=== PATIENT | female | born 1970 | race Caucasian/White ===

== ENCOUNTER 2018-01-07 10:59 | Emergency (ER) | payer BC ==
[~2018-01-07] VITALS: Ht 162.6 cm; Wt 55.8 kg
[2018-01-07 11:01] VITALS: BP 134/60; PULSE 88; RESP 16; TEMP 97.8; O2SAT 98
[2018-01-07] MEDS ORDERED: METF500T PO (11:24)
[2018-01-07] MEDS ORDERED: ZOLO100T PO (11:24)
[2018-01-07] MEDS ORDERED: ASPI-516 CHEW (11:24)
[2018-01-07] MEDS ORDERED: CLON1 PO (11:24)
[2018-01-07] MEDS ORDERED: BUSP30TA PO (11:24)
[2018-01-07] MEDS ORDERED: TOPI25 PO (11:24)
--- NOTE | 2018-01-07 11:25 | PD ---
HPI Chief Complaint: [employer] Problem/Complaint Time Seen by Provider: 11:23 Travel History International Travel<30 days: No Contact w/Intl Traveler<30days: No Traveled to known affect area: No History of Present Illness HPI 47-year-old female came to the emergency room with history of dark-colored urine since this morning. Patient is concerned about her kidneys. There was a UA ordered from triage. Patient says she cannot give a urine sample and wants us to catheterize her. She is concerned that she has history of diabetes and is on Glucophage 500 mg twice daily. She has lost substantial amount of weight in past 12-14 months intentionally. Patient also says that she was admitted 3 days prior to today in [facility] for small bowel obstruction. She had an NG tube and large quantity of gastric juice was suctioned out. Within 24 hours she started having large volume of liquid stool 4 times. Last episode of such diarrhea was January 05. Patient says today when she noticed the dark color urine she got concerned about her kidney and came to the emergency room. She drove herself but on route became incontinent and had formed stool in her underwear. Vital signs are stable. Patient denies any fever or chills. During this entire history taking it was very difficult to get the patient focused and gave pertinent history. She had a tendency to backtrack 12-14 months ago. She was very disgruntled by her experience at the [facility] and said she did not want to talk about it. Patient is from [place]. She has made me aware that her doctors are in [place]. She is also concerned about edema of her body. Patient denies of any dysuria or hematuria. [facility] Past Medical History Narrative Medical List of her past medical, surgical, social and family history is reviewed from the nursing note. Anxiety: Yes Depression: Yes Diabetes: Yes Patient Takes Glucophage: Yes ?: Not Past Surgical History Other Surgery: Yes (r ovary and fallopian tube removed) Social History Alcohol Use: No Tobacco Use: Yes Substance Use: No Allergies-Medications (Allergen,Severity, Reaction): Coded Allergies: ciprofloxacin (Verified Allergy, Severe, 01/07/18) TONGUE SWELLING No Known Allergies (Verified Allergy, Unknown, 01/07/18) Comments No known drug allergies. Reported Meds & Prescriptions Reported Meds & Active Scripts Active Macrobid (Nitrofurantoin Monoh/Nitrofur Macro) 100 Mg Cap 100 Mg PO BID 10 Days Reported Aspirin 81 Mg Chew 81 Mg CHEW DAILY Topamax (Topiramate) 25 Mg Tab 30 Mg PO BID Klonopin (Clonazepam) 1 Mg Tab 1 Mg PO BID Buspirone (Buspirone HCl) 30 Mg Tab 30 Mg PO BID Zoloft (Sertraline HCl) 100 Mg Tab 200 Mg PO DAILY Metformin (Metformin HCl) 500 Mg Tab 500 Mg PO DAILY With a meal Narrative Medication List of her home medications reviewed from the nursing note. Review of Systems Except as stated in HPI: all other systems reviewed are Neg Physical Exam Narrative GENERAL: Awake, alert, no obvious distress SKIN: Focused skin assessment warm/dry. HEAD: Atraumatic. Normocephalic. EYES: Pupils equal and round. No scleral icterus. No injection or drainage. ENT: No nasal bleeding or discharge. Mucous membranes pink and moist. NECK: Trachea midline. No JVD. CARDIOVASCULAR: Regular rate and rhythm. No murmur appreciated. RESPIRATORY: No accessory muscle use. Clear to auscultation. Breath sounds equal bilaterally. GASTROINTESTINAL: Abdomen soft, non-tender, nondistended. Hepatic and splenic margins not palpable. MUSCULOSKELETAL: No obvious deformities. No clubbing. No cyanosis. No edema. NEUROLOGICAL: Awake and alert. No obvious cranial nerve deficits. Motor grossly within normal limits. Normal speech. PSYCHIATRIC: Appropriate mood and affect; insight and judgment normal. Data Data Last Documented VS Vital Signs Date Time Temp Pulse Resp B/P (MAP) Pulse Ox O2 Delivery O2 Flow Rate FiO2 01/07/18 14:10 01/07/18 13:50 78 16 100 Room Air 01/07/18 11:01 97.8 Orders Orders Urinalysis - C+S If Indicated (01/07/18 11:02) Ed Urine Pregnancytest Poc (01/07/18 11:02) Complete Blood Count With Diff (01/07/18 11:46) Comprehensive Metabolic Panel (01/07/18 11:46) Sodium Chlor 0.9% 1000 Ml Inj (Ns 1000 M (01/07/18 12:00) Urine Culture (01/07/18 11:54) Ceftriaxone Inj (Rocephin Inj) (01/07/18 12:45) Blood Culture (01/07/18 12:44) Ed Discharge Order (01/07/18 12:50) Labs Laboratory Tests Test 01/07/18 11:54 White Blood Count 16.3 TH/MM3 Red Blood Count 4.45 MIL/MM3 Hemoglobin 12.7 GM/DL Hematocrit 38.0 % Mean Corpuscular Volume 85.3 FL Mean Corpuscular Hemoglobin 28.6 PG Mean Corpuscular Hemoglobin Concent 33.5 % Red Cell Distribution Width 13.7 % Platelet Count 303 TH/MM3 Mean Platelet Volume 8.9 FL Neutrophils (%) (Auto) 69.1 % Lymphocytes (%) (Auto) 23.0 % Monocytes (%) (Auto) 5.7 % Eosinophils (%) (Auto) 0.7 % Basophils (%) (Auto) 1.5 % Neutrophils # (Auto) 11.4 TH/MM3 Lymphocytes # (Auto) 3.7 TH/MM3 Monocytes # (Auto) 0.9 TH/MM3 Eosinophils # (Auto) 0.1 TH/MM3 Basophils # (Auto) 0.2 TH/MM3 CBC Comment AUTO DIFF Differential Comment AUTO DIFF CONFIRMED Urine Collection Type CLEAN CATCH Urine Color YELLOW Urine Turbidity SL CLOUDY Urine pH 6.0 Urine Specific [place] LESS/EQUAL 1.005 Urine Protein NEG mg/dL Urine Glucose (UA) NEG mg/dL Urine Ketones TRACE mg/dL Urine Occult Blood LARGE Urine Nitrite NEG Urine Bilirubin NEG Urine Urobilinogen 0.2 MG/DL Urine Leukocyte Esterase LARGE Urine RBC 100-200 /hpf Urine WBC 25-49 /hpf Urine Squamous Epithelial Cells 6-8 /hpf Urine Bacteria MOD /hpf Microscopic Urinalysis Comment CULTURE INDICATED Urine Collection Time 11:54 Blood Urea Nitrogen 8 MG/DL Creatinine 0.55 MG/DL Random Glucose 103 MG/DL Total Protein 8.0 GM/DL Albumin 4.0 GM/DL Calcium Level 9.0 MG/DL Alkaline Phosphatase 67 U/L Aspartate Amino Transf (AST/SGOT) 13 U/L Alanine Aminotransferase (ALT/SGPT) 18 U/L Total Bilirubin 0.5 MG/DL Sodium Level 139 MEQ/L Potassium Level 3.6 MEQ/L Chloride Level 109 MEQ/L Carbon Dioxide Level 21.4 MEQ/L Anion Gap 9 MEQ/L Estimat Glomerular Filtration Rate 118 ML/MIN [facility] Medical Decision Making Medical Screen Exam Complete: Yes Emergency Medical Condition: Yes Medical Record Reviewed: Yes Differential Diagnosis Dehydration, acute renal failure, electrolyte abnormality Narrative Course 11:59 AM I let the patient know that will give her IV fluid and once she is ready to urinate she can give us a urine sample. Patient became very upset at this and said that I do not understand that she is very dehydrated. She is really concerned that her kidneys have failed. I did make her aware that she had blood test done 2 days ago at [facility] and if there was any issues with her renal function they would have let her know prior to the discharge. However we will repeat the blood test here. At this point patient said that she got the feeling that I was not listening to her and she is in charge of her body. She would rather talk to her doctors from [place] and consult with them. Since I felt that the situation was escalating and getting nowhere and no matter what I told the patient she was fixated on the idea that I was not interested in her health condition I left the room and came out and inform the charge nurse about the situation. 12:48 PM blood test results are back and patient has leukocytosis with no left shift. Electrolyte and renal function are within normal limit. UA is suggestive of a UTI. I have ordered blood culture and IV Rocephin. Patient can be discharged home on p.o. Macrobid. There are RBCs in her urine which could be from her menstrual cycle currently. Procedures EKG Prior to Arrival: No Diagnosis Primary Impression: UTI (urinary tract infection) Qualified Codes: N39.0 - Urinary tract infection, site not specified; R31.9 - Hematuria, unspecified Referrals: [facility] Additional Instructions: Take the medication as per the prescription direction. Follow-up with the clinic whose name and number been provided to you. Return to the ER if condition worsens any other new concerns. Med/Other Pt SpecificInfo: Prescription(s) given Scripts Nitrofurantoin Monohydrate Macrocrystals (Macrobid) 100 Mg Cap 100 MG PO BID for Infection for 10 Days, #20 CAP 0 Refills Prov: Chris Lynn MD 01/07/18 Disposition: 01 DISCHARGE HOME Condition: Stable Chris Lynn MD January 07, 2018 11:24
[2018-01-07] MEDS ORDERED: SODIUM CHLOR 0.9% 1000 ML INJ 1,000 ML IV ONE (12:00)
[2018-01-07 12:07] LABS: AUTOMATED NEUTROPHIL # 11.4 TH/MM3 (1.8-7.7); BASOPHIL # 0.2 TH/MM3 (0-0.2); BASOPHIL % 1.5 % (0.0-2.0); EOSINOPHIL # 0.1 TH/MM3 (0-0.4); EOSINOPHIL % 0.7 % (0.0-4.0); HEMOGLOBIN 12.7 GM/DL (11.6-15.3); LYMPHOCYTE # 3.7 TH/MM3 (1.0-4.8); MEAN CELL VOLUME 85.3 FL (80.0-100.0); MEAN CORPUSCULAR HEMOGLOBIN 28.6 PG (27.0-34.0); MEAN CORPUSCULAR HGB CONC 33.5 % (32.0-36.0); MEAN PLATELET VOLUME 8.9 FL (7.0-11.0); MONO % 5.7 % (0.0-8.0); MONOCYTE # 0.9 TH/MM3 (0-0.9); NEUT % 69.1 % (16.0-70.0); PLATELET COUNT 303 TH/MM3 (150-450); RED BLOOD COUNT 4.45 MIL/MM3 (4.00-5.30); RED CELL DISTRIBUTION WIDTH 13.7 % (11.6-17.2); WHITE BLOOD COUNT 16.3 TH/MM3 (4.0-11.0)
[2018-01-07 12:08] LABS: BILIRUBIN, URINE NEG (NEG); BLOOD, URINE LARGE (NEG); GLUCOSE,URINE NEG (NEG); KETONE, URINE TRACE mg/dL (NEG); NITRITE,URINE NEG (NEG); URINE COLOR YELLOW (YELLW/STRAW); URINE LEUKOCYTE ESTERASE LARGE (NEG)
[2018-01-07 12:16] LABS: CHLORIDE 109 MEQ/L (98-107); SODIUM (NA) 139 MEQ/L (136-145)
[2018-01-07 12:22] LABS: BICARBONATE 21.4 MEQ/L (21.0-32.0); BLOOD UREA NITROGEN 8 MG/DL (7-18); GLUCOSE,RANDOM 103 MG/DL (74-106)
[2018-01-07 12:25] LABS: ALT (GPT) 18 U/L (10-53); AST (GOT) 13 U/L (15-37); CREATININE 0.55 MG/DL (0.50-1.00); GLOMERULAR FILTRATION RATE 118 ML/MIN (>89)
[2018-01-07 12:27] LABS: TOTAL BILIRUBIN ADULT 0.5 MG/DL (0.2-1.0)
[2018-01-07 12:28] LABS: ALKALINE PHOSPHATASE 67 U/L (45-117); RBC, URINE 100-200 /hpf (0-3)
[2018-01-07 12:29] LABS: BACTERIA, URINE MOD /hpf
[2018-01-07] MEDS ORDERED: cefTRIAXone INJ 1,000 MG in SODIUM CHLORIDE 0.9% INJ 100 ML IV ONE (12:45)
[2018-01-07] MEDS ORDERED: MACR100C2 PO (12:50)
[2018-01-07 13:50] VITALS: BP 140/71; PULSE 78; RESP 16; O2SAT 100
== END 2018-01-07 14:10 | disposition home or self-care (01) ==
LOC: PHED 10:59
DX: N39.0 Urinary tract infection, site not specified (principal); D72.829 Elevated white blood cell count, unspecified; E11.9 Type 2 diabetes mellitus without complications; F41.9 Anxiety disorder, unspecified; F32.9 Major depressive disorder, single episode, unspecified; Z72.0 Tobacco use; Z88.1 Allergy status to other antibiotic agents; Z79.82 Long term (current) use of aspirin; Z79.899 Other long term (current) drug therapy
CPT/HCPCS: 80053; 81001; 84703; 85025; 87040; 87086; 96361; 96365; 99284; J0696; J7030